=== PATIENT | female | born 1985 | race Caucasian/White ===

== ENCOUNTER 2016-09-28 22:32 | Inpatient (IN) | payer MEDICAID ==
[~2016-09-28] VITALS: Ht 157.5 cm; Wt 98.6 kg
[~2016-09-28 22:32] MED LIST: ACET325T33 PO; LEVO50TA74 PO
[2016-09-28 23:40] VITALS: BP 132/80; PULSE 88; RESP 18
[2016-09-29 00:09] LABS: ADD UMIC YES; URINE BILIRUBIN (Dip) NEGATIVE (NEGATIVE); URINE BLOOD (Dip) NEGATIVE (NEGATIVE); URINE COLOR LT. YELLOW (YELLOW); URINE GLUCOSE (Dip) NEGATIVE (NEGATIVE); URINE KETONES (Dip) TRACE (NEGATIVE); URINE LEUKOCYTE ESTERASE (Dip) 1+ (NEGATIVE); URINE NITRITE (Dip) NEGATIVE (NEGATIVE); URINE TOTAL PROTEIN (Dip) TRACE (NEGATIVE); URINE UROBILINOGEN (Dip) 1.0 E.U./dL (0.1-1.0)
[2016-09-29] MEDS ORDERED: TERBUTALINE 1 ML ONE (00:21)
[2016-09-29] MEDS ORDERED: TERBUTALINE 1 MG/ML INJ SC ONE (00:30)
[2016-09-29] MEDS ORDERED: LACTATED RINGER'S 1,000 ML IV ONE (00:30)
[2016-09-29 00:34] LABS: BACTERIA,URINE MODERATE; SQUAMOUS EPITHELIAL CELL,UR MANY; URINE RBCS NONE SEEN /HPF (0)
[2016-09-29] MEDS ORDERED: LEVO150T67 PO (00:37)
[2016-09-29] MEDS ORDERED: FERR134T PO (00:37)
[2016-09-29] MEDS ORDERED: PRENAT PO (00:37)
[2016-09-29] MEDS: LACTATED RINGER'S 1,000 ML IV SCH ×3 (01:47→18:12)
[2016-09-29 01:50] LABS: ADD SCAN DIFF NO
[2016-09-29 01:52] LABS: BASOPHILS % 0.2 % (0.0-2.0); EOSINOPHILS # 0.1 10^3/ul (0.0-0.5); HEMATOCRIT 32.9 % (37.0-47.0); HEMOGLOBIN 11.4 g/dl (12.0-16.0); LYMPHOCYTES # 2.3 10^3/ul (0.8-2.9); LYMPHOCYTES % 27.6 % (15.0-51.0); MEAN CORPUSCULAR HEMOGLOBIN 29.8 pg (29.0-33.0); MEAN CORPUSCULAR HGB CONC 34.7 g/dl (32.0-37.0); MEAN CORPUSCULAR VOLUME 86.1 fl (82.0-101.0); MEAN PLATELET VOLUME 11.9 fl (7.4-10.4); MONOCYTE # 0.7 10^3/ul (0.3-0.9); MONOCYTES % 8.9 % (0.0-11.0); NEUTROPHILS % 61.7 % (39.0-77.0); PLATELET COUNT 155 10^3/UL (140-415); RED BLOOD COUNT 3.82 10^6/ul (4.20-5.40); RED CELL DISTRIBUTION WIDTH 13.5 % (11.5-14.5); WHITE BLOOD COUNT 8.2 10^3/ul (4.8-10.8)
[2016-09-29] MEDS ORDERED: LACTATED RINGER'S 1,000 ML IV SCH (02:18)
--- NOTE | 2016-09-29 02:22 | HP ---
Date/Time of Note Date/Time of Note DATE: 09/29/16 TIME: 02:20 OB - History Hx of Present Free Text/Dictation 32+wks GA CXL 2.2 : 2 Para: 1 Care: Good Care Ultrasounds: Normal mid trimester US Obstetrical Complications: None Medical Complications: None Past Family/Social History * Past Medical, Surgical, Family and Obstetric Histories reviewed from chart. OB Admission Exam Vital Signs Vital Signs Vital Signs Date Time Temp Pulse Resp B/P Pulse Ox O2 Delivery O2 Flow Rate FiO2 09/28/16 23:40 97.4 88 18 132/80 Room Air Physical Exam Abdomen: WNL Extremities: Normal Cervical Dilatation: None Effacement: 25% Membranes: Intact Heart Rate: 140's Accelerations: Accelerations Present Decelerations: No Decelerations Varibility: Moderate Contractions on Admission: >10 Minutes Apart Last 72 hours Lab Results CBC & BMP 09/29/16 00:45 OB Assessment/Plan Reason for admission: observation, labor Plan: Expectant Management Other plan: CXL 2.2 --->steroids --->Mg --->prenatalogy consult --->JARROD Butler M.D. September 29, 2016 02:22
[2016-09-29] MEDS ORDERED: AL HYDROX/MG HYDROX/SIMETH 30 ML CUP PO PRN (02:30)
[2016-09-29] MEDS ORDERED: ACETAMINOPHEN 325 MG TAB PO PRN (02:30)
[2016-09-29] MEDS ORDERED: CEFAZOLIN 2 GM/50 ML (PMX) 50 ML IVPB ONE (02:30)
[2016-09-29] MEDS ORDERED: MAGNESIUM SULFATE 4 GM/100 ML 100 ML IV ONE (02:30)
--- NOTE | 2016-09-29 02:36 | RADRPT ---
PROCEDURE: OB ultrasound for biophysical profile CLINICAL INDICATION: labor. TECHNIQUE: Multiple sonographic images of the gravid uterus performed. The images were reviewed on a PACS workstation. COMPARISON: None FINDINGS: A single live intrauterine is identified with heart rate of 132 bpm. Fet us is in a cephalic presentation. Placenta is located posteriorly. Biophysical profile: breathing movement = 2/2 tone = 2/2 motion = 2/2 DOLLY = 2/2 DOLLY = 13.86 cm. Cervix is 2.2 cm length. Free fluid is noted at the external cervical os. IMPRESSION: 1. Single live intrauterine gestation. 2. Biophysical profile = 8/8. 3. DOLLY = 13.86 cm. RPTAT: HMVK .Jesus Israel MD, MD Date Time Electronically viewed and signed by .Jesus Israel MD, MD on 09/29/2016 02:35 .K/
--- NOTE | 2016-09-29 02:37 | RADRPT ---
PROCEDURE: US OB. CLINICAL INDICATION: Pain. TECHNIQUE: Multiple sonographic images of the pelvis were obtained. Transabdominal imaging only w as performed. The images were reviewed on a PACS workstation. COMPARISON: None. FINDINGS: Single live intrauterine is identified. Cardiac activity is present with 144 beats per mi nute. There is a vertex presentation. Measurements: BPD = 33 weeks 2 days. HC = 34 weeks 4 days. AC = 33 weeks 0 days. FL = 33 weeks 4 days. Estimated gestational age of approximately 33 weeks 4 days. The estimated date of delivery is 11/13/2016. The EFW = 2176 g which is at the 70th percentile. The placenta is posterior. IMPRESSION: Single live intrauterine gestation of approximately 33 weeks 4 days. RPTAT: HMVK .Jesus Israel MD, Date Time Electronically viewed and signed by .Jesus Israel MD, MD on 09/29/2016 02:37 .K/
[2016-09-29] MEDS ORDERED: MAGNESIUM SULFATE 6 GM in SOD CHLORIDE 0.9% 100 ML IV ONE (03:00)
[2016-09-29] MEDS: MAGNESIUM SULFATE 20 GM/500 ML 500 ML IV SCH ×3 (03:40→21:57)
--- NOTE | 2016-09-29 04:31 | TRIAGE ---
OB Triage Datetime Report Generated by CPN: 09/29/2016 04:31 Datetime: 09/29/2016 03:55 Stage of : Antepartum Datetime: 09/29/2016 01:46 Heart Rate FHR Baseline Rate: 140 Monitor Mode: External US Datetime: 09/29/2016 01:24 Monitor Mode: External Quality: Mild Pattern: Normal: <= 5 Contractions in 10 Minutes Resting Tone [place]: Relaxed Heart Rate FHR Baseline Rate: 140 Monitor Mode: External US FHR Baseline Changes: No Baseline Change Variability: Moderate 6-25 bpm Accelerations: 15X15 Category: Category I Datetime: 09/29/2016 00:27 Monitor Mode: External Quality: Mild Pattern: Normal: <= 5 Contractions in 10 Minutes Resting Tone [place]: Relaxed Heart Rate FHR Baseline Rate: 145 Monitor Mode: External US FHR Baseline Changes: No Baseline Change Variability: Moderate 6-25 bpm Accelerations: 15X15 Decelerations: None Category: Category I Datetime: 09/28/2016 23:55 Stage of : OB Triage Datetime: 09/28/2016 23:50 Stage of : OB Triage Labor Evaluation Frequency: 2-5 Monitor Mode: External Duration (sec)2399: 20-60 Quality: Mild Pattern: Normal: <= 5 Contractions in 10 Minutes Resting Tone [place]: Relaxed Heart Rate FHR Baseline Rate: 140 Monitor Mode: External US FHR Baseline Changes: No Baseline Change Variability: Moderate 6-25 bpm Accelerations: 15X15 Datetime: 09/28/2016 23:25 Stage of : OB Triage Labor Evaluation Frequency: 2-5 Monitor Mode: External Duration (sec)2399: 40-60 Quality: Mild Pattern: Normal: <= 5 Contractions in 10 Minutes Resting Tone [place]: Relaxed Heart Rate FHR Baseline Rate: 140 Monitor Mode: External US FHR Baseline Changes: No Baseline Change Variability: Moderate 6-25 bpm Accelerations: 15X15 Decelerations: None Category: Category I Datetime: 09/28/2016 23:14 EGA: 32.2 Arrived By: Ambulatory Arrived From: Home Vaginal Exam Membrane Status: Intact Datetime: 09/28/2016 22:42 Stage of : OB Triage Maternal Assessment Level of Consciousness: Fully Conscious Headache: Denies Blurred Vision: No Respiratory Effort: Unlabored Nausea/Vomiting: Denies RUQ Epigastric Pain: Denies Facial Edema: None Monitor Mode: External Resting Tone [place]: Relaxed Monitor Mode: External US Comments: FHR 150 Pain Assessment Pain Scale: 3 Pain Presence: Intermittent Pain Type: Contraction Pain Location: Abdomen Datetime: 09/28/2016 22:40 Time of Arrival: 09/28/2016 22:26 Arrived By: Ambulatory Arrived From: Home Chief Complaint: w/ c/o ucs. Hx PTD at 36 wks for PIH Movement: Present (Annotations: Data stored by CPN on behalf of user) Contractions: Regular Time Contractions Began: 09/28/2016 18:00 Contractions: 2-4 Rupture of Membranes: Denies Vaginal Bleeding: None Vaginal Discharge: Denies Recent Sexual Intercouse: Denies Abdominal Trauma: Not Applicable Patient Complaints: Contractions Time Provider Notified: 09/28/2016 23:55 Provider Notified: Dr Irene Initial Plan: CVL,EFW,UA,CBC,IV hydration, Terb
[2016-09-29] MEDS: BETAMET NA PHOS/AC(6 MG/ML) 5ML INJ IM SCH (04:35)
[2016-09-29] MEDS: LEVOTHYROXINE 150 MCG TAB PO SCH (05:36)
[2016-09-29] MEDS ORDERED: LEVOTHYROXINE 150 MCG TAB PO SCH (07:00)
[2016-09-29] MEDS ORDERED: MULTIVIT/MIN/FOLATE/IRON/PREN TAB PO SCH (09:00)
[2016-09-29] MEDS ORDERED: FERROUS SULFATE (EC) 325 MG TAB PO SCH (09:00)
[2016-09-29] MEDS: SENNA TAB PO SCH (09:09)
[2016-09-29] MEDS: FERROUS SULFATE (EC) 325 MG TAB PO SCH (09:09)
[2016-09-29] MEDS: MULTIVIT/MIN/FOLATE/IRON/PREN TAB PO SCH (09:09)
[2016-09-29] MEDS: DOCUSATE SODIUM 100 MG CAP PO SCH (09:09)
[2016-09-29] MEDS: NITROFURANTOIN (SR) 100 MG CAP PO SCH ×2 (11:45→20:45)
--- NOTE | 2016-09-29 12:38 | PN ---
Date/Time of Note Date/Time of Note DATE: 09/29/16 TIME: 12:32 OB Subjective Subjective Subjective Patient is 2 para 1 at 32+ weeks of gestation admitted for labor She is currently on magnesium sulfate 2 g/h Status post 1 dose of betamethasone Patient hx significant for hypothyroidism and currently on Synthroid Patient past obstetrical history significant for preeclampsia OB Objective Objective Objective Cervical length 2.2 cm PROCEDURE: US OB. CLINICAL INDICATION: Pain. TECHNIQUE: Multiple sonographic images of the pelvis were obtained. Transabdominal imaging only was performed. The images were reviewed on a PACS workstation. COMPARISON: None. FINDINGS: Single live intrauterine is identified. Cardiac activity is present with 144 beats per minute. There is a vertex presentation. Measurements: BPD = 33 weeks 2 days. HC = 34 weeks 4 days. AC = 33 weeks 0 days. FL = 33 weeks 4 days. Estimated gestational age of approximately 33 weeks 4 days. The estimated date of delivery is 11/13/2016. The EFW = 2176 g which is at the 70th percentile. The placenta is posterior. IMPRESSION: Single live intrauterine gestation of approximately 33 weeks 4 days. RPTAT: HMVK .Jesus Israel MD, MD Date Time Electronically viewed and signed by .Jesus Israel MD, MD on 09/29/2016 02:37 .K/ CC: JARROD ROSALES M.D. PROCEDURE: OB ultrasound for biophysical profile CLINICAL INDICATION: labor. TECHNIQUE: Multiple sonographic images of the gravid uterus performed. The images were reviewed on a PACS workstation. COMPARISON: None FINDINGS: A single live intrauterine is identified with heart rate of 132 bpm. Fetus is in a cephalic presentation. Placenta is located posteriorly. Biophysical profile: breathing movement = 2/2 tone = 2/2 motion = 2/2 DOLLY = 2/2 DOLLY = 13.86 cm. Cervix is 2.2 cm length. Free fluid is noted at the external cervical os. IMPRESSION: 1. Single live intrauterine gestation. 2. Biophysical profile = 8/8. 3. DOLLY = 13.86 cm. RPTAT: HMVK .Jesus Israel MD, Date Time Electronically viewed and signed by .Jesus Israel MD, on 09/29/2016 02:35 .K/ CC: JARROD ROSALES M.D. HEENT: WNL Heart: Rhythm Normal Lungs: Clear, Equal Abdomen: WNL Extremities: Normal Reflexes: Normal Heart Rate: 140's Accelerations: Accelerations Present Decelerations: No Decelerations OB Assessment/Plan Other Assessment: 2 para 1 at 32+3 weeks of gestation with labor Other plan: Continue with Magso4 Second dose of betamethasone to be given Macrobid for UTI ordered Perinatology consult pending LARA FENG MD September 29, 2016 12:38
[2016-09-30] MEDS: LACTATED RINGER'S 1,000 ML IV SCH ×2 (02:58→09:05)
[2016-09-30] MEDS: BETAMET NA PHOS/AC(6 MG/ML) 5ML INJ IM SCH (04:30)
[2016-09-30] MEDS: LEVOTHYROXINE 150 MCG TAB PO SCH (05:51)
[2016-09-30] MEDS: MAGNESIUM SULFATE 20 GM/500 ML 500 ML IV SCH (07:04)
[2016-09-30] MEDS: DOCUSATE SODIUM 100 MG CAP PO SCH (09:04)
[2016-09-30] MEDS: SENNA TAB PO SCH (09:04)
[2016-09-30] MEDS: NITROFURANTOIN (SR) 100 MG CAP PO SCH (09:04)
[2016-09-30] MEDS: FERROUS SULFATE (EC) 325 MG TAB PO SCH (09:04)
[2016-09-30] MEDS: MULTIVIT/MIN/FOLATE/IRON/PREN TAB PO SCH (09:04)
--- NOTE | 2016-09-30 16:20 | QN ---
Documentation Comment iup 32.4 no complaints no ucx good FM vss exam wnl nst reactive a/p iup 32.3 ptl-s/p bms and mgsout dc mgso4 dc iv abx(no uti) repeat Cl in am possible dc home in am SHABNAM THORPE MD September 30, 2016 16:20
[2016-09-30] MEDS ORDERED: NIFEdipine 10 MG CAP PO ONE (17:30)
[2016-10-01] MEDS: LEVOTHYROXINE 150 MCG TAB PO SCH (06:01)
--- NOTE | 2016-10-01 07:40 | RADRPT ---
PROCEDURE: Limited obstetric ultrasound CLINICAL INDICATION: Pain , labor TECHNIQUE: Multiple transverse and longitudinal grayscale images of the pelvis were obtained magallanes sabdominally and transvaginally.. COMPARISON: 09/29/2016 FINDINGS: The cervix is closed with a length of 2.1 cm. There is a single viable intrauterine gestation. Cardiac activity is present with 144 beats per min [place]. There is a vertex presentation. The placenta is posterior. There is no evidence for an abruption or placenta previa. RPTAT: AA IMPRESSION: Cervix length measures 2.1 cm. .Delmer Carmona MD, MD Date Time Electronically viewed and signed by .Delmer Carmona MD, on 10/01/2016 07:40 .S/
[2016-10-01] MEDS: FERROUS SULFATE (EC) 325 MG TAB PO SCH (08:58)
[2016-10-01] MEDS: DOCUSATE SODIUM 100 MG CAP PO SCH (08:58)
[2016-10-01] MEDS: SENNA TAB PO SCH (08:58)
[2016-10-01] MEDS: MULTIVIT/MIN/FOLATE/IRON/PREN TAB PO SCH (08:58)
[2016-10-01] MEDS: NIFEdipine 10 MG CAP PO SCH ×3 (08:59→17:55)
[2016-10-01 09:58] LABS: ADD SCAN DIFF NO
[2016-10-01 10:03] LABS: BASOPHILS % 0.2 % (0.0-2.0); EOSINOPHILS % 0.1 % (0.0-7.0); HEMATOCRIT 32.3 % (37.0-47.0); HEMOGLOBIN 10.8 g/dl (12.0-16.0); LYMPHOCYTES # 1.6 10^3/ul (0.8-2.9); LYMPHOCYTES % 15.1 % (15.0-51.0); MEAN CORPUSCULAR HEMOGLOBIN 29.2 pg (29.0-33.0); MEAN CORPUSCULAR HGB CONC 33.4 g/dl (32.0-37.0); MEAN CORPUSCULAR VOLUME 87.3 fl (82.0-101.0); MEAN PLATELET VOLUME 11.4 fl (7.4-10.4); MONOCYTE # 0.6 10^3/ul (0.3-0.9); MONOCYTES % 5.5 % (0.0-11.0); NEUTROPHIL # 8.2 10^3/ul (1.6-7.5); NEUTROPHILS % 77.6 % (39.0-77.0); PLATELET COUNT 172 10^3/UL (140-415); RED CELL DISTRIBUTION WIDTH 13.8 % (11.5-14.5); WHITE BLOOD COUNT 10.6 10^3/ul (4.8-10.8)
[2016-10-01] MEDS: CEPHALEXIN 500 MG CAP PO SCH ×2 (12:00→17:55)
--- NOTE | 2016-10-01 16:53 | CONS ---
DATE OF ADMISSION: 09/29/2016 DATE OF CONSULTATION: 10/01/2016 HISTORY OF PRESENT ILLNESS: The patient was admitted over the weekend because of contractions. Tra nsvaginal cervical length was done which showed 2 cm of the cervix. She is currently at 32 weeks an d 5 days. She received magnesium and betamethasone. Second dose of betamethasone was yesterday at 3 p.m. Magnesium sulfate was discontinued this morning. After that she started having some contracti ons, and she was placed subsequently on Procardia 10 mg every 6 hours. She does state that after Procardia she does not feel contractions. OBSTETRIC HISTORY: Significant for prior preeclampsia at 36 weeks, subsequent delivery and also she has hypothyroid disease. MEDICATIONS: I am not aware if she is taking medications. PHYSICAL EXAMINATION: VITAL SIGNS: Blood pressures normal. Physical examination deferred. heart tones reassuring. Contractions irregular irritability. IMPRESSION: Intrauterine at 32 weeks and 5 days with labor, status post magnesium sulfate and betamethasone, currently on Procardia 10 mg every 6 hours with no contractions. History of preeclampsia, currently her blood pressures are overall normal. RECOMMENDATIONS: Continue with the Procardia until tomorrow morning, and if she is stable, she can be discharged home with modified bed rest, at least until 34 weeks. Continue with the Procardia until 36 weeks of gestation. Please review the thyroid hormones and if necessary refer for consultation. Monitor blood pressures closely. Dictated By: NATHAN AGUILAR/DAX Conf#: [id number] DID#: [id number]
[2016-10-02] MEDS: NIFEdipine 10 MG CAP PO SCH ×5 (00:14→23:53)
[2016-10-02] MEDS: CEPHALEXIN 500 MG CAP PO SCH ×5 (00:15→23:52)
[2016-10-02] MEDS: LEVOTHYROXINE 150 MCG TAB PO SCH (06:01)
[2016-10-02] MEDS: DOCUSATE SODIUM 100 MG CAP PO SCH (09:41)
[2016-10-02] MEDS: MULTIVIT/MIN/FOLATE/IRON/PREN TAB PO SCH (09:42)
[2016-10-02] MEDS: SENNA TAB PO SCH (09:42)
[2016-10-02] MEDS: FERROUS SULFATE (EC) 325 MG TAB PO SCH (09:42)
--- NOTE | 2016-10-02 13:48 | PN ---
Date/Time of Note Date/Time of Note DATE: 10/02/16 TIME: 13:41 Assessment/Plan VTE Prophylaxis VTE Prophylaxis Intervention: anti-embolic stocking Lines/Catheters IV Catheter Type (from Nrsg): Peripheral IV Subjective 24 Hr Interval Summary Free Text/Dictation 32,6 WEEKS LABOR SHORT CERVIX Constitutional: improved, no complaints Eyes: no complaints ENT: no complaints Cardiovascular: no complaints Musculoskeletal: no complaints Skin: no complaints Neurologic: no complaints Psychological: nl mood/affect, no complaints Exam/Review of Systems Vital Signs Vitals Vital Signs Date Time Temp Pulse Resp B/P Pulse Ox O2 Delivery O2 Flow Rate FiO2 09/28/16 23:40 97.4 88 18 132/80 Room Air Exam PATIENT IS UNDELIVERED AT 32,6 WEEKS HAS BEEN EDWIN 3-5 MINUTES APART. ON PROCARDIA HAD LABOR TREATED WITH MAG SULFATE AND PROCARDIA HAD STEROID AND ANTIBIOTIC TREATMENT CULTURE NEGATIVE IN URINE. ON PO KEFLEX DUE TO BLADDER PAIN ON PELVIC EXAM. PROCARDIA WILL BE INCREASED FOR BETTER TOCOLYSIS ON STRICT BED REST. US SHOWED CLOSED CERVIX BUT SHORT. Constitutional: alert, oriented, well developed Psych: nl mood/affect, no complaints Head: atraumatic, normocephalic Eyes: EOMI, PERRL, nl conjunctiva, nl lids, nl sclera ENMT: nl external ears & nose, nl lips & teeth, nl nasal mucosa & septum Neck: non-tender, supple Respiratory: clear to auscultation, normal air movement Cardiovascular: nl pulses, regular rate and rhythm Gastrointestinal: nl liver, spleen, non-tender, soft Musculoskeletal: nl extremities to inspection, nl gait and stance Extremities: normal pulses Neurological: CARGO ROUTER II-XII intact, nl mental status, nl speech, nl strength Skin: nl turgor, No rash or lesions Lymph: nl lymph nodes Results Result Diagram: 10/01/16 0900 Medications Medications Current Medications Prenat Multivit/ [place]/Iron/Folic Ac ( S) 1 tab DAILY PO Last administered on 10/02/16 09:42; Admin Dose 1 TAB; Start 09/29/16 at 09:00 Ferrous Sulfate (Ferrous Sulfate (Ec)) 325 mg DAILY PO Last administered on 09:42; Admin Dose 325 MG; Start 09/29/16 at 09:00 Docusate Sodium (Colace) 100 mg DAILY PO Last administered on 10/02/16 09:41; Admin Dose 100 MG; Start 09/29/16 at 09:00 Senna (Senokot) 1 tab DAILY PO Last administered on 10/02/16 09:42; Admin Dose 1 TAB; Start 09/29/16 at 09:00 Acetaminophen (Tylenol Tab) 650 mg Q4H PRN PO PAIN AND OR ELEVATED TEMP; Start 09/29/16 at 02:30 Al Hydrox/Mg Hydrox/Simethicone (Mag-Al Plus) 30 ml Q6H PRN PO GASTROINTESTINAL UPSET; Start 09/29/16 at 02:30 Levothyroxine Sodium (Synthroid) 150 mcg DAILY@06 PO Last administered on 06:01; Admin Dose 150 MCG; Start 09/29/16 at 06:00 Cephalexin (Keflex) 500 mg Q6 PO Last administered on 10/02/16 12:21; Admin Dose 500 MG; Start 10/01/16 at 12:00 Nifedipine (Procardia) 20 mg Q6 PO Last administered on 10/02/16 12:23; Admin Dose 20 MG; Start 10/02/16 at 12:30 Diagnostic Test (Pha) (Accu-Chek) 1 ea FBSPP XX ; Start 10/02/16 at 14:00 MELANIE CARRILLO MD October 02, 2016 13:48
--- NOTE | 2016-10-02 13:51 | PN ---
Date/Time of Note Date/Time of Note DATE: 10/01/16 TIME: 13:48 OB Subjective Subjective Subjective LABOR ADMITTED DURING THE WEEKEND FOR UTERINE CONTRACTIONS AND SHORT CERVIX. TREATMENT WAS GIVEN WITH MAG SULFATE, STEROIDS AND ANTIBIOTICS. PERINATOLOGY CONSULTED MELANIE CARRILLO MD October 02, 2016 13:51
[2016-10-02 14:41] VITALS: Ht 157.5 cm; Wt 98.6 kg
[2016-10-02] MEDS: ACCU-CHEK XX SCH (19:44)
[2016-10-03] MEDS: CEPHALEXIN 500 MG CAP PO SCH ×3 (05:47→18:06)
[2016-10-03] MEDS: NIFEdipine 10 MG CAP PO SCH ×3 (05:47→18:07)
[2016-10-03] MEDS: LEVOTHYROXINE 150 MCG TAB PO SCH (05:47)
[2016-10-03] MEDS: ACCU-CHEK XX SCH ×4 (08:30→20:05)
[2016-10-03] MEDS: FERROUS SULFATE (EC) 325 MG TAB PO SCH (09:07)
[2016-10-03] MEDS: SENNA TAB PO SCH (09:07)
[2016-10-03] MEDS: DOCUSATE SODIUM 100 MG CAP PO SCH (09:07)
[2016-10-03] MEDS: MULTIVIT/MIN/FOLATE/IRON/PREN TAB PO SCH (09:07)
--- NOTE | 2016-10-03 12:24 | PN ---
Date/Time of Note Date/Time of Note DATE: 10/03/16 TIME: 12:22 OB Subjective Subjective Subjective doing good, not maureen. blood sugar normal today is 33.1 weeks we will keep her in bed rest until 34 weeks and send home then OB Objective HEENT: WNL Heart: Rhythm Normal Lungs: Clear, Equal Abdomen: WNL Extremities: Normal Reflexes: Normal MELANIE CARRILLO MD October 03, 2016 12:24
--- NOTE | 2016-10-03 13:28 | RADRPT ---
PROCEDURE: OB ultrasound for biophysical profile CLINICAL INDICATION: Biophysical profile. . labor TECHNIQUE: Multiple sonographic images of the pelvis were obtained. Transabdominal and transvagin al views are obtained. COMPARISON: OB ultrasound 10/01/2016 FINDINGS: Single intrauterine gestation. Presentation: Cephalic. Placenta: Posterior No evidence of placental abruption. No evidence of placenta previa. breathing movement = 2/2 tone = 2/2 motion = 2/2 DOLLY = 2/2 DOLLY = 14.9 cm heart rate: 168.4 beats per minute Cervix is now shortened measuring 12 mm in length and is partially opened measuring 1.3 mm in diamet er as visualized transvaginally. IMPRESSION: Single intrauterine gestation. Biophysical profile 12/18 Cervix is mal shortened measuring 12 mm in length and is partially opened measuring 1.3 mm in diamet er as visualized transvaginally. Results were discussed with Nurse Littlejohn by telephone at 1325 hours on 10/03/[address] Dante beverly RPTAT: AADD .Dante Márquez MD, Date Time Electronically viewed and signed by .Dante Márquez MD, on 10/03/2016 13:28 .B/
[2016-10-04] MEDS: NIFEdipine 10 MG CAP PO SCH ×4 (00:03→19:58)
[2016-10-04] MEDS: CEPHALEXIN 500 MG CAP PO SCH ×4 (00:03→19:57)
[2016-10-04] MEDS: LEVOTHYROXINE 150 MCG TAB PO SCH (06:00)
[2016-10-04] MEDS: ACCU-CHEK XX SCH ×4 (07:30→19:59)
[2016-10-04] MEDS: FERROUS SULFATE (EC) 325 MG TAB PO SCH (08:59)
[2016-10-04] MEDS: SENNA TAB PO SCH (08:59)
[2016-10-04] MEDS: DOCUSATE SODIUM 100 MG CAP PO SCH (08:59)
[2016-10-04] MEDS: MULTIVIT/MIN/FOLATE/IRON/PREN TAB PO SCH (08:59)
--- NOTE | 2016-10-04 10:56 | PN ---
Date/Time of Note Date/Time of Note DATE: 10/04/16 TIME: 10:53 OB Subjective Subjective Subjective feels good with some contractions that go away with procardia. not maureen right now no pain no other symptoms stable cervical length is only 1 cm 33.1 weeks today goal is to keep her in bed rest until 34 weeks. MELANIE CRARILLO MD October 04, 2016 10:56
[2016-10-05] MEDS: CEPHALEXIN 500 MG CAP PO SCH ×4 (00:06→17:47)
[2016-10-05] MEDS: NIFEdipine 10 MG CAP PO SCH ×4 (00:07→17:47)
[2016-10-05] MEDS: LEVOTHYROXINE 150 MCG TAB PO SCH (06:08)
[2016-10-05] MEDS: ACCU-CHEK XX SCH (07:26)
[2016-10-05] MEDS: DOCUSATE SODIUM 100 MG CAP PO SCH (08:48)
[2016-10-05] MEDS: SENNA TAB PO SCH (08:48)
[2016-10-05] MEDS: FERROUS SULFATE (EC) 325 MG TAB PO SCH (08:48)
[2016-10-05] MEDS: MULTIVIT/MIN/FOLATE/IRON/PREN TAB PO SCH (08:48)
--- NOTE | 2016-10-05 10:26 | PN ---
Date/Time of Note Date/Time of Note DATE: 10/05/16 TIME: 10:24 OB Subjective Subjective Subjective DOING WELL., NO PROBLEMS OR COMPLAINTS NO CONTRACTIONS NOW HAD CONTRACTIONS LAST NITE CONTROLLED WITH PROCARDIA BLOOD SUGAR STABLE. HOME AT 34 WEEKS DUE TO CERVICAL LENGTH OB Objective HEENT: WNL Heart: Rhythm Normal Lungs: Clear, Equal Abdomen: WNL Extremities: Normal Reflexes: Normal MELANIE CARRILLO MD October 05, 2016 10:26
[2016-10-06] MEDS: NIFEdipine 10 MG CAP PO SCH ×5 (00:10→23:55)
[2016-10-06] MEDS: CEPHALEXIN 500 MG CAP PO SCH ×5 (00:10→23:54)
[2016-10-06] MEDS: LEVOTHYROXINE 150 MCG TAB PO SCH (05:59)
[2016-10-06] MEDS ORDERED: TERBUTALINE 1 ML ONE (08:27)
[2016-10-06] MEDS ORDERED: TERBUTALINE 1 MG/ML INJ SC ONE (08:30)
[2016-10-06] MEDS: FERROUS SULFATE (EC) 325 MG TAB PO SCH (09:08)
[2016-10-06] MEDS: DOCUSATE SODIUM 100 MG CAP PO SCH (09:08)
[2016-10-06] MEDS: SENNA TAB PO SCH (09:08)
[2016-10-06] MEDS: MULTIVIT/MIN/FOLATE/IRON/PREN TAB PO SCH (09:08)
[2016-10-06] MEDS: metroNIDAZOLE 0.75% 70 GM VAG GEL VAG SCH ×2 (10:28→20:59)
--- NOTE | 2016-10-06 23:58 | QN ---
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 Pt was on magnesium initially and is now on Procardia 10 mg q 6 hours. Pt reports occasional UC's. No VB or leaking. NST reactive. Occasional UC's noted. Pt is in good spirits. P: Continue care. In hospital until 34 weeks and then will go home on Procardia until 36-37 weeks. JOSEE JENNINGS MD October 06, 2016 23:58
[2016-10-07] MEDS: NIFEdipine 10 MG CAP PO SCH ×3 (06:06→17:41)
[2016-10-07] MEDS: LEVOTHYROXINE 150 MCG TAB PO SCH (06:06)
[2016-10-07] MEDS: CEPHALEXIN 500 MG CAP PO SCH ×3 (06:06→17:40)
[2016-10-07] MEDS: SENNA TAB PO SCH (08:58)
[2016-10-07] MEDS: DOCUSATE SODIUM 100 MG CAP PO SCH (08:58)
[2016-10-07] MEDS: MULTIVIT/MIN/FOLATE/IRON/PREN TAB PO SCH (08:58)
[2016-10-07] MEDS: FERROUS SULFATE (EC) 325 MG TAB PO SCH (08:58)
[2016-10-07] MEDS: metroNIDAZOLE 0.75% 70 GM VAG GEL VAG SCH (21:15)
[2016-10-08] MEDS: CEPHALEXIN 500 MG CAP PO SCH ×5 (00:01→23:59)
[2016-10-08] MEDS: NIFEdipine 10 MG CAP PO SCH ×5 (00:03→23:59)
[2016-10-08] MEDS: LEVOTHYROXINE 150 MCG TAB PO SCH (05:36)
[2016-10-08] MEDS: DOCUSATE SODIUM 100 MG CAP PO SCH (08:46)
[2016-10-08] MEDS: FERROUS SULFATE (EC) 325 MG TAB PO SCH (08:46)
[2016-10-08] MEDS: SENNA TAB PO SCH (08:47)
[2016-10-08] MEDS: MULTIVIT/MIN/FOLATE/IRON/PREN TAB PO SCH (08:47)
--- NOTE | 2016-10-08 12:33 | PN ---
Date/Time of Note Date/Time of Note DATE: 10/08/16 TIME: 12:31 Assessment/Plan VTE Prophylaxis VTE Prophylaxis Intervention: anti-embolic stocking Lines/Catheters IV Catheter Type (from Nrsg): Peripheral IV Subjective 24 Hr Interval Summary Free Text/Dictation doing well not maureen no changes continue same plan Constitutional: improved, no complaints Exam/Review of Systems Exam Constitutional: alert, oriented, well developed Psych: nl mood/affect, no complaints Head: atraumatic, normocephalic Eyes: EOMI, PERRL, nl conjunctiva, nl lids, nl sclera ENMT: nl external ears & nose, nl lips & teeth, nl nasal mucosa & septum Neck: non-tender, supple Respiratory: clear to auscultation, normal air movement Cardiovascular: nl pulses, regular rate and rhythm Gastrointestinal: nl liver, spleen, non-tender, soft Musculoskeletal: nl extremities to inspection, nl gait and stance Extremities: normal pulses Neurological: TOLL COLLECTOR SUPERVISOR II-XII intact, nl mental status, nl speech, nl strength Skin: nl turgor, No rash or lesions Lymph: nl lymph nodes Medications Medications Current Medications Prenat Multivit/ [place]/Iron/Folic Ac ( S) 1 tab DAILY PO Last administered on 10/08/16 08:47; Admin Dose 1 TAB; Start 09/29/16 at 09:00 Ferrous Sulfate (Ferrous Sulfate (Ec)) 325 mg DAILY PO Last administered on 08:46; Admin Dose 325 MG; Start 09/29/16 at 09:00 Docusate Sodium (Colace) 100 mg DAILY PO Last administered on 10/08/16 08:46; Admin Dose 100 MG; Start 09/29/16 at 09:00 Senna (Senokot) 1 tab DAILY PO Last administered on 10/08/16 08:47; Admin Dose 1 TAB; Start 09/29/16 at 09:00 Acetaminophen (Tylenol Tab) 650 mg Q4H PRN PO PAIN AND OR ELEVATED TEMP; Start 09/29/16 at 02:30 Al Hydrox/Mg Hydrox/Simethicone (Mag-Al Plus) 30 ml Q6H PRN PO GASTROINTESTINAL UPSET; Start 09/29/16 at 02:30 Levothyroxine Sodium (Synthroid) 150 mcg DAILY@06 PO Last administered on 05:36; Admin Dose 150 MCG; Start 09/29/16 at 06:00 Cephalexin (Keflex) 500 mg Q6 PO Last administered on 10/08/16 11:47; Admin Dose 500 MG; Start 10/01/16 at 12:00 Nifedipine (Procardia) 20 mg Q6 PO Last administered on 10/08/16 11:47; Admin Dose 20 MG; Start 10/02/16 at 12:30 Metronidazole (Metrogel 0.75 % Vag) 1 applic HS VAG Last administered on 21:15; Admin Dose 1 APPLIC; Start 10/06/16 at 09:00 MELANIE CARRILLO MD October 08, 2016 12:33
--- NOTE | 2016-10-08 12:34 | PN ---
Date/Time of Note Date/Time of Note DATE: 10/07/16 TIME: 12:33 OB Subjective Subjective Subjective no changes no contractions stable MELANIE CARRILLO MD October 08, 2016 12:34
[2016-10-08] MEDS: metroNIDAZOLE 0.75% 70 GM VAG GEL VAG SCH (21:01)
[2016-10-09] MEDS: CEPHALEXIN 500 MG CAP PO SCH ×3 (05:57→17:52)
[2016-10-09] MEDS: LEVOTHYROXINE 150 MCG TAB PO SCH (05:57)
[2016-10-09] MEDS: NIFEdipine 10 MG CAP PO SCH ×3 (05:59→17:53)
[2016-10-09] MEDS: DOCUSATE SODIUM 100 MG CAP PO SCH (09:04)
[2016-10-09] MEDS: FERROUS SULFATE (EC) 325 MG TAB PO SCH (09:05)
[2016-10-09] MEDS: SENNA TAB PO SCH (09:05)
[2016-10-09] MEDS: MULTIVIT/MIN/FOLATE/IRON/PREN TAB PO SCH (09:05)
--- NOTE | 2016-10-09 11:05 | PN ---
Date/Time of Note Date/Time of Note DATE: 10/09/16 TIME: 11:03 Assessment/Plan VTE Prophylaxis VTE Prophylaxis Intervention: ambulation Lines/Catheters IV Catheter Type (from Nrsg): Peripheral IV Subjective 24 Hr Interval Summary Free Text/Dictation NOT EDWIN STABLE 33.6 WEEKS TODAY WE ANTICIPATE HOME IN AM PELVIC EXAM WITHOUT CHANGES Exam/Review of Systems Exam Constitutional: alert, oriented, well developed Psych: nl mood/affect, no complaints Head: atraumatic, normocephalic Eyes: EOMI, PERRL, nl conjunctiva, nl lids, nl sclera ENMT: nl external ears & nose, nl lips & teeth, nl nasal mucosa & septum Neck: non-tender, supple Respiratory: clear to auscultation, normal air movement Cardiovascular: nl pulses, regular rate and rhythm Gastrointestinal: nl liver, spleen, non-tender, soft Musculoskeletal: nl extremities to inspection, nl gait and stance Extremities: normal pulses Neurological: PHOTOGRAPH TINTER II-XII intact, nl mental status, nl speech, nl strength Skin: nl turgor, No rash or lesions Lymph: nl lymph nodes Medications Medications Current Medications Prenat Multivit/ [place]/Iron/Folic Ac ( S) 1 tab DAILY PO Last administered on 10/09/16 09:05; Admin Dose 1 TAB; Start 09/29/16 at 09:00 Ferrous Sulfate (Ferrous Sulfate (Ec)) 325 mg DAILY PO Last administered on 09:05; Admin Dose 325 MG; Start 09/29/16 at 09:00 Docusate Sodium (Colace) 100 mg DAILY PO Last administered on 10/09/16 09:04; Admin Dose 100 MG; Start 09/29/16 at 09:00 Senna (Senokot) 1 tab DAILY PO Last administered on 10/09/16 09:05; Admin Dose 1 TAB; Start 09/29/16 at 09:00 Acetaminophen (Tylenol Tab) 650 mg Q4H PRN PO PAIN AND OR ELEVATED TEMP; Start 09/29/16 at 02:30 Al Hydrox/Mg Hydrox/Simethicone (Mag-Al Plus) 30 ml Q6H PRN PO GASTROINTESTINAL UPSET; Start 09/29/16 at 02:30 Levothyroxine Sodium (Synthroid) 150 mcg DAILY@06 PO Last administered on 05:57; Admin Dose 150 MCG; Start 09/29/16 at 06:00 Cephalexin (Keflex) 500 mg Q6 PO Last administered on 10/09/16 05:57; Admin Dose 500 MG; Start 10/01/16 at 12:00 Nifedipine (Procardia) 20 mg Q6 PO Last administered on 10/09/16 05:59; Admin Dose 20 MG; Start 10/02/16 at 12:30 Metronidazole (Metrogel 0.75 % Vag) 1 applic HS VAG Last administered on 21:01; Admin Dose 1 APPLIC; Start 10/06/16 at 09:00 MELANIE CARRILLO MD October 09, 2016 11:05
[2016-10-09] MEDS: metroNIDAZOLE 0.75% 70 GM VAG GEL VAG SCH (20:54)
[2016-10-10] MEDS: CEPHALEXIN 500 MG CAP PO SCH ×4 (00:10→12:20)
[2016-10-10] MEDS: NIFEdipine 10 MG CAP PO SCH ×3 (00:13→12:16)
[2016-10-10] MEDS: LEVOTHYROXINE 150 MCG TAB PO SCH (06:07)
[2016-10-10] MEDS: MULTIVIT/MIN/FOLATE/IRON/PREN TAB PO SCH (10:26)
[2016-10-10] MEDS: SENNA TAB PO SCH (10:26)
[2016-10-10] MEDS: DOCUSATE SODIUM 100 MG CAP PO SCH (10:26)
[2016-10-10] MEDS: FERROUS SULFATE (EC) 325 MG TAB PO SCH (10:26)
--- NOTE | 2016-10-10 11:15 | PD.PPDC ---
COMPOSITION INSTRUCTOR Discharge Instruction Condition Patient Condition: Good Diet Diet: Resume Regular Diet Activity/Restrictions Activity: Normal Activity May Shower Restrictions: No Exercising No Lifting No Driving No Sexual Activity Nothing in the Vagina No [place]ren No Tampons, MELANIE Cosby MD October 10, 2016 11:15
--- NOTE | 2016-10-10 13:04 | DS ---
DATE OF ADMISSION: 09/29/2016 DATE OF DISCHARGE: 10/10/2016 ADMITTING DIAGNOSES: 1. A 32 weeks' with premature labor and short cervix. 2. Previous premature labor. 3. Hypothyroid disease, on medication. FINAL DIAGNOSES: 1. Premature labor at 34 weeks with cervical changes. 2. Hypothyroidism. 3. Home, undelivered. HISTORY: This is a 31-year-old female, 2, para 1 with a previous delivery at 36 weeks. Thi s patient had come in at 32 weeks with contractions and short cervix with funneling of the cervix. The patient was admitted by the laborist and she was given magnesium sulfate, betamethasone and anti biotics. Consultation was done with Dr. Mason and she agreed on keep her on bed rest in the [facility] until all the medications properly for premature labor were given. The patient received, the magn esium sulfate was discontinued and she started contraction again, so Procardia was added by mouth an d antibiotics as Keflex. She stopped maureen and she is controlled on Procardia. We kept her a t bed rest. The cervical length is just 1 cm. We kept her at bed rest in the hospital until 34 wee ks had been reached. Today is 34 weeks, she is being sent home with instructions of what to do and not to do, and with instructions of seeing me in the office in a week on Procardia 20 mg 3 times a d ay, and partial bed rest at home with 6 hours of bed rest during the day without going out to the [facility]. This patient is to see me in the office in a week. She was instructed on labor precautions. She is stable in good condition to go home. Her laboratory testing did not show any problems. She is slightly anemic for which she was given prenatals and iron, and treatment for was given. The clean catch urine results were negative. The patient is stable otherwise to go home and further instructions were given. She is discharged in good condition and with all her questions answered. Dictated By: MELANIE SERRANO/DAX Conf#: [id number] DID#: [id number]
== END 2016-10-10 13:10 | disposition home or self-care (01) | DRG 778 ==
LOC: OBT 22:32 → L-D 22:32 → OBT 09-29 02:28 → OBG 09-29 03:55
PROVIDERS: ADMIT Obstetrics & Gynecology; ATTEND Obstetrics & Gynecology
DX: O60.00 Preterm labor without delivery, unspecified trimester (principal); O26.879 Cervical shortening, unspecified trimester; O09.213 Supervision of pregnancy with history of pre-term labor, third trimester; O09.293 Supervision of pregnancy with other poor reproductive or obstetric history, third trimester; Z3A.32 32 weeks gestation of pregnancy; O99.283 Endocrine, nutritional and metabolic diseases complicating pregnancy, third trimester; E03.9 Hypothyroidism, unspecified
CPT/HCPCS: 36415; 76815; 76817; 76818; 81001; 81003; 82962; 83735; 84439; 84443; 85025; 86850; 86900; 86901; 87086; 96360; 96361; 96372; G0463; J0702; J3105; J3475; J7120

== ENCOUNTER 2016-10-25 01:38 | Outpatient (CLI) | payer MEDICAID, OTHER ==
[~2016-10-25] VITALS: Ht 160 cm; Wt 105.6 kg
[~2016-10-25 01:38] MED LIST changes: -ACET325T33 PO; +FERR134T PO; +LEVO150T67 PO; -LEVO50TA74 PO; +PRENAT PO
[2016-10-25 02:29] VITALS: Ht 160 cm; Wt 105.6 kg
[2016-10-25 02:30] VITALS: BP 109/65; PULSE 86; RESP 16
[2016-10-25] MEDS ORDERED: TERBUTALINE 1 ML ONE (02:43)
[2016-10-25] MEDS ORDERED: TERBUTALINE 1 MG/ML INJ SC ONE (03:30)
[2016-10-25] MEDS ORDERED: LACTATED RINGER'S 1,000 ML IV ONE (03:30)
[2016-10-25] MEDS ORDERED: LACTATED RINGER'S 1,000 ML IV SCH (03:30)
--- NOTE | 2016-10-25 05:15 | PN ---
Triage Information Date/Time October 25, 2016 Weeks of Gestation 36 weeks and 1 day : 2 Para: 1 Diabetes: none Hypertention: none Additional information 31-year-old with IUP at 36 weeks and 1 presented with complaint of pelvic pressure and uterine contractions. She had a history of delivery in this when she was admitted for steroid and was placed on Procardia. As Procardia was 2 weeks ago. She also has a history of hypothyroidism currently on Synthroid. She denies any leaking of fluid, vaginal bleeding or decreased movement. She was examined and was 2-/-2 patient received a dose of terbutaline with IV hydration. Objective Vital Signs Date Time Temp Pulse Resp B/P Pulse Ox O2 Delivery O2 Flow Rate FiO2 10/25/16 02:30 98.4 86 16 109/65 Room Air Exam General appearance: Alert and oriented 4 patient does not appear to be in any acute distress. Abdomen: Soft, gravid, fundal height consistent with gestational age, nontender , no rebound tenderness NST: Category 1 exam in the office 2 cm Exam in triage 2-/-2 Results/Medications Medications Current Medications Lactated Ringer's (Lr) 1,000 ml @ 125 mls/hr Q8H IV Last administered on t 03:20; Admin Dose 125 MLS/HR; Start 10/25/16 at 03:30 Assessment/Plan Patient being observed in triage to see if there is any cervical change. HAILEE CASTANO MD Oct 25, 2016 05:15
== END 2016-10-25 05:30 | disposition home or self-care (01) ==
LOC: OBT 01:38 → L-D 01:38 → OBT 02:40
PROVIDERS: ATTEND Obstetrics & Gynecology
DX: O62.9 Abnormality of forces of labor, unspecified (principal); O99.283 Endocrine, nutritional and metabolic diseases complicating pregnancy, third trimester; E03.9 Hypothyroidism, unspecified; Z79.890 Hormone replacement therapy; Z3A.36 36 weeks gestation of pregnancy
CPT/HCPCS: 36415; 96360; 96372; J3105; J7120; Z7500; G0463

== ENCOUNTER 2016-11-14 09:30 | Inpatient (IN) | payer OTHER ==
[~2016-11-14] VITALS: Ht 160 cm; Wt 104.5 kg
[2016-11-14] MEDS ORDERED: LACTATED RINGER'S 1,000 ML IV SCH (09:40)
[2016-11-14 10:00] VITALS: Ht 160 cm; Wt 104.5 kg
[2016-11-14] MEDS ORDERED: BUTORPHANOL 2 MG INJ IV PRN (10:00)
[2016-11-14] MEDS ORDERED: CARBOPROST 250 MCG INJ IM PRN (10:00)
[2016-11-14] MEDS ORDERED: LIDOCAINE 1% (MPF) 30 ML INJ INJ PRN (10:00)
[2016-11-14] MEDS ORDERED: OXYTOCIN 30 UNITS/LR 500 ML IV PRN (10:00)
[2016-11-14] MEDS ORDERED: METHYLERGONOVINE 0.2 MG INJ IM PRN (10:00)
[2016-11-14] MEDS ORDERED: OXYTOCIN 30 UNITS/LR 500 ML IV SCH ×3 (10:00)
[2016-11-14] MEDS ORDERED: IBUPROFEN 600 MG TAB PO PRN (10:00)
[2016-11-14] MEDS ORDERED: MISOPROSTOL 200 MCG TAB PR PRN (10:00)
[2016-11-14 10:48] LABS: ADD SCAN DIFF NO
[2016-11-14 10:50] LABS: BASOPHILS % 0.4 % (0.0-2.0); EOSINOPHILS % 0.5 % (0.0-7.0); HEMATOCRIT 34.7 % (37.0-47.0); HEMOGLOBIN 11.6 g/dl (12.0-16.0); LYMPHOCYTES % 23.6 % (15.0-51.0); MEAN CORPUSCULAR HEMOGLOBIN 28.6 pg (29.0-33.0); MEAN CORPUSCULAR HGB CONC 33.4 g/dl (32.0-37.0); MEAN CORPUSCULAR VOLUME 85.5 fl (82.0-101.0); MEAN PLATELET VOLUME 11.9 fl (7.4-10.4); MONOCYTE # 0.7 10^3/ul (0.3-0.9); MONOCYTES % 8.8 % (0.0-11.0); NEUTROPHIL # 5.5 10^3/ul (1.6-7.5); NEUTROPHILS % 66.2 % (39.0-77.0); PLATELET COUNT 169 10^3/UL (140-415); RED BLOOD COUNT 4.06 10^6/ul (4.20-5.40); RED CELL DISTRIBUTION WIDTH 14.2 % (11.5-14.5); WHITE BLOOD COUNT 8.3 10^3/ul (4.8-10.8)
[2016-11-14 11:00] VITALS: BP 111/68; PULSE 88; RESP 18
[2016-11-14 11:06] LABS: INR 0.86; PROTIME 11.7 Sec (12.2-14.2); PT RATIO 0.9
[2016-11-14 11:07] LABS: PARTIAL THROMBOPLASTIN TIME 28.1 Sec (25.0-35.0)
[2016-11-14] MEDS ORDERED: DINOPROSTONE 10 MG VAG SUPP VAG ONE (11:30)
[2016-11-14] MEDS ORDERED: LACTATED RINGER'S 1,000 ML IV PRN (12:00)
[2016-11-14] MEDS ORDERED: DEXTROSE 5%-LR 1,000 ML IV SCH (16:25)
[2016-11-14] MEDS: LACTATED RINGER'S 1,000 ML IV SCH (17:37)
[2016-11-14] MEDS ORDERED: FENTAnyl 2MCG/ML-ROPIV 0.2% 100 ML ONE (22:56)
[2016-11-15] MEDS ORDERED: OXYTOCIN 30 UNITS/LR 500 ML IV SCH (02:00)
[2016-11-15] MEDS: LACTATED RINGER'S 1,000 ML IV SCH (03:11)
--- NOTE | 2016-11-15 03:51 | HP ---
Date/Time of Note Date/Time of Note DATE: 11/15/16 TIME: 03:48 OB - History Hx of Present Chief Complaint: history of severe preeclampsia Last Menstrual Period: Jan 28, 2017 Estimated Due Date: Nov 21, 2016 : 2 Para: 1 Care: Good Care Obstetrical Complications: None Medical Complications: None Past Family/Social History * Past Medical, Surgical, Family and Obstetric Histories reviewed from chart. Rubella: immune RPR/VDRL: Negative GBS Status: Negative HBsAG: Negative OB Admission Exam Vital Signs Vital Signs Vital Signs Date Time Temp Pulse Resp B/P Pulse Ox O2 Delivery O2 Flow Rate FiO2 11/14/16 11:00 98.3 88 18 111/68 Room Air Physical Exam HEENT: WNL Heart: Rhythm Normal Lungs: Clear, Equal Abdomen: WNL Extremities: Normal Reflexes: Normal Cervical Dilatation: 3cm Effacement: 75% Station: -3 Membranes: Intact Heart Rate: 120's Varibility: Moderate Contractions on Admission: 6-10 Minutes Apart Intensity: Mild Last 72 hours Lab Results CBC & BMP 11/14/16 10:20 OB Assessment/Plan Reason for admission: induction of labor Induction Method: per Misoprostol Protocol MELANIE CARRILLO MD Nov 15, 2016 03:51
--- NOTE | 2016-11-15 03:54 | LDN ---
Date/Time of Note Date/Time of Note DATE: 11/15/16 TIME: 03:51 Delivery Summary Weeks of Gestation 39 weeks Assisted Vaginal Delivery: Vacuum Placenta Delivered: Spontaneously Episiotomy: No Perineal laceration: 1 Anesthesia type: Epidural Sponge & Needle done & correct: Yes All needle counts correct: Yes Any foreign bodies felt in the: No Problems: Infant Delivery Information Sex Infant Sex: female Apgars 1 Minute: 9 5 Minute: 9 Suctioning Nose & mouth suctioned at simona: Yes Delee suction performed: No Umbilical Cord Umbilical cord with: 3 Vessels Cord presentations: nuchal cord Cord Blood was obtained: Yes Mother & Baby Disposition Disposition Mom & Baby to Maternity; Good: Yes MELANIE CARRILLO MD Nov 15, 2016 03:54
[2016-11-15] MEDS ORDERED: CARBOPROST 250 MCG INJ IM PRN (04:00)
[2016-11-15] MEDS ORDERED: ONDANSETRON 4 MG INJ IV PRN (04:00)
[2016-11-15] MEDS ORDERED: MISOPROSTOL 200 MCG TAB PR PRN (04:00)
[2016-11-15] MEDS ORDERED: ACETAMINOPHEN 325 MG TAB PO PRN ×2 (04:00)
[2016-11-15] MEDS ORDERED: DIPHENHYDRAMINE 25 MG CAP PO PRN (04:00)
[2016-11-15] MEDS ORDERED: OXYTOCIN 30 UNITS/LR 500 ML IV PRN (04:00)
[2016-11-15] MEDS ORDERED: BENZOCAINE 20% 56 ML SPRAY TOP PRN (04:00)
[2016-11-15] MEDS ORDERED: METHYLERGONOVINE 0.2 MG INJ IM PRN (04:00)
[2016-11-15] MEDS ORDERED: DIBUCAINE 1% 30 GM OINT PR PRN (04:00)
[2016-11-15] MEDS ORDERED: ACETAMINOPHEN/CODEINE #3 TAB PO PRN ×2 (04:00)
[2016-11-15] MEDS ORDERED: LANOLIN 7 GM TUBE TOP PRN (04:00)
[2016-11-15 06:15] VITALS: BP 123/65; PULSE 67; RESP 19
[2016-11-15] MEDS: IBUPROFEN 800 MG TAB PO SCH ×3 (06:15→18:05)
[2016-11-15] MEDS: OXYTOCIN 30 UNITS/LR 500 ML IV SCH ×2 (07:20→12:20)
[2016-11-15] MEDS: LEVOTHYROXINE 150 MCG TAB PO SCH (07:46)
[2016-11-15 07:57] VITALS: BP 110/74; PULSE 77; RESP 14
[2016-11-15] MEDS: SENNA/DOCUSATE NA (8.6MG/50MG) TAB PO SCH ×2 (09:19→21:36)
[2016-11-15 14:00] VITALS: BP 129/78; PULSE 72; RESP 16
[2016-11-15 16:09] VITALS: BP 120/72; PULSE 67; RESP 14
[2016-11-15 20:00] VITALS: BP 114/71; PULSE 75; RESP 20
[2016-11-16] MEDS: IBUPROFEN 800 MG TAB PO SCH ×4 (00:08→18:14)
[2016-11-16 04:00] VITALS: BP 121/68; PULSE 70; RESP 20
[2016-11-16] MEDS: LEVOTHYROXINE 150 MCG TAB PO SCH (07:08)
[2016-11-16 07:45] VITALS: BP 99/66; PULSE 59; RESP 18
[2016-11-16 07:59] LABS: ADD SCAN DIFF NO
[2016-11-16 08:00] VITALS: BP 105/55; PULSE 61; RESP 19
[2016-11-16 08:02] LABS: BASOPHILS % 0.4 % (0.0-2.0); EOSINOPHILS # 0.1 10^3/ul (0.0-0.5); EOSINOPHILS % 1.1 % (0.0-7.0); HEMATOCRIT 31.4 % (37.0-47.0); HEMOGLOBIN 10.6 g/dl (12.0-16.0); LYMPHOCYTES # 2.2 10^3/ul (0.8-2.9); LYMPHOCYTES % 28.5 % (15.0-51.0); MEAN CORPUSCULAR HGB CONC 33.8 g/dl (32.0-37.0); MEAN PLATELET VOLUME 11.8 fl (7.4-10.4); MONOCYTE # 0.6 10^3/ul (0.3-0.9); MONOCYTES % 7.6 % (0.0-11.0); NEUTROPHIL # 4.9 10^3/ul (1.6-7.5); NEUTROPHILS % 61.9 % (39.0-77.0); PLATELET COUNT 150 10^3/UL (140-415); RED BLOOD COUNT 3.65 10^6/ul (4.20-5.40); RED CELL DISTRIBUTION WIDTH 14.3 % (11.5-14.5); WHITE BLOOD COUNT 7.9 10^3/ul (4.8-10.8)
[2016-11-16] MEDS: SENNA/DOCUSATE NA (8.6MG/50MG) TAB PO SCH ×2 (09:23→21:00)
[2016-11-16] MEDS ORDERED: WITCH HAZEL/GLYCERIN PAD PR PRN (12:30)
--- NOTE | 2016-11-16 12:39 | QN ---
Documentation Comment PPD#1 is stable afebrile tolerates diet No VB +BM +voids VS stable Gen NAD Abd soft NT ND Genitalia No blood at perinium --->ambulation JARROD ROSALES M.D. Nov 16, 2016 12:39
[2016-11-16 15:50] VITALS: BP 102/58; PULSE 64; RESP 18
[2016-11-16 19:50] VITALS: BP 112/65; PULSE 73; RESP 19
[2016-11-17] MEDS: IBUPROFEN 800 MG TAB PO SCH ×3 (00:02→11:57)
[2016-11-17 04:00] VITALS: BP 111/72; PULSE 71
[2016-11-17] MEDS: LEVOTHYROXINE 150 MCG TAB PO SCH (07:19)
[2016-11-17 08:00] VITALS: BP 114/61; PULSE 74; RESP 18
[2016-11-17] MEDS: SENNA/DOCUSATE NA (8.6MG/50MG) TAB PO SCH (08:42)
[2016-11-17] MEDS ORDERED: MEASLES,MUMPS,RUBELLA VACCINE INJ SC* ONE (09:00)
[2016-11-17] MEDS ORDERED: DIPHTH/TET/ACEL PERTUSS (ADULT) 0.5 ML VIAL IM* ONE (09:00)
[2016-11-17] MEDS ORDERED: VARICELLA VACCINE LIVE/PF 1,350 UNIT/0.5 ML ML SC* ONE (09:00)
== END 2016-11-17 16:45 | disposition home or self-care (01) | DRG 775 ==
LOC: L-D 09:30 → PP1 11-15 06:00
PROVIDERS: ADMIT Obstetrics & Gynecology; ATTEND Obstetrics & Gynecology
PROC: 10E0XZZ Delivery of Products of Conception, External Approach (ICD-10-PCS; principal; 2016-11-15)
PROC: 0HQ9XZZ Repair Perineum Skin, External Approach (ICD-10-PCS; 2016-11-15)
DX: O69.81X0 Labor and delivery complicated by cord around neck, without compression, not applicable or unspecified (principal); Z68.41 Body mass index [BMI] 40.0-44.9, adult; O70.0 First degree perineal laceration during delivery; O99.214 Obesity complicating childbirth; E66.01 Morbid (severe) obesity due to excess calories; O99.284 Endocrine, nutritional and metabolic diseases complicating childbirth; E03.9 Hypothyroidism, unspecified; Z3A.39 39 weeks gestation of pregnancy; Z37.0 Single live birth
CPT/HCPCS: 62319; 85025; 85610; 85730; 86592; 86900; 86901; 87340; 90715; 90716; 99464; J2590; J3010; J7120; J7121

== ENCOUNTER 2017-05-07 01:20 | Emergency (ER) | payer OTHER ==
[~2017-05-07] VITALS: Ht 162.6 cm; Wt 101.4 kg
[2017-05-07 01:28] VITALS: Ht 162.6 cm; Wt 101.4 kg
[2017-05-07] MEDS ORDERED: LIDOCAINE 1% (MDV) 20 ML INJ SC ONE (03:30)
[2017-05-07] MEDS ORDERED: IBUP800T25 PO (03:52)
[2017-05-07] MEDS ORDERED: CEPH-443 PO (03:52)
[2017-05-07] MEDS ORDERED: SULF1TAB31 PO (03:52)
[2017-05-07] MEDS ORDERED: MUPI22OI2 NASAL (03:52)
--- NOTE | 2017-05-07 03:57 | ERD ---
ER Documentation Chief Complaint Chief Complaint swelling right axilla x 4 days HPI 32-year-old female complaining of swelling her right axilla 4 days. Patient stated that this started as a pimple, and she tried to squeeze it. It has been increasing in size, and increasing pain. She took Tylenol at home which helped some. Denies fever or chills. Denies drainage. Patient stated that her father had frequent abscesses that required drainage. She lives with him. She also had history of other abscesses. ROS All systems reviewed and are negative except as per history of present illness. Medications Home Meds Active Scripts Mupirocin* (Bactroban*) 2% -22 Gram Oint...g., 1 APPLIC NASAL BID for 14 Days, EA Prov:DAMIEN DAMICO NP 05/07/17 Sulfamethoxazole/Trimethoprim* (Bactrim Ds* Tablet) 1 Each Tablet, 1 TAB PO BID , #14 TAB Prov:DAMIEN DAMICO NP 05/07/17 Cephalexin* (Keflex*) 500 Mg Capsule, 500 MG PO QID for 7 Days, CAP Prov:DAMIEN DAMICO NP 05/07/17 Ibuprofen* (Motrin*) 800 Mg Tab, 800 MG PO Q6H Y for PAIN AND OR ELEVATED TEMP, #30 TAB Prov:DAMIEN DAMICO NP 05/07/17 Reported Medications Ferrous Sulfate (Iron) 134 Mg Tablet, 134 MG PO DAILY, TAB 09/29/16 Multivit/Min/Fol Ac/Iron/Pren* ( S*) 1 Tab Tab, 1 TAB PO DAILY, TAB 09/29/16 Levothyroxine Sodium* (Levothyroxine Sodium*) 150 Mcg Tablet, 150 MCG PO BEFORE BREAKFAST, #30 TAB 09/29/16 Allergies Allergies: Coded Allergies: No Known Drug Allergies (Verified Allergy, Mild, none, 05/07/17) PMhx/Soc Medical and Surgical Hx: pt denies Surgical Hx History of Surgery: No Anesthesia Reaction: No Hx Neurological Disorder: No Hx Respiratory Disorders: No Hx Cardiac Disorders: No Hx Psychiatric Problems: No Hx Miscellaneous Medical Probl: Yes (hyporthyroidism, hypertension) Hx Alcohol Use: No Hx Substance Use: No Hx Tobacco Use: No Smoking Status: Never smoker Physical Exam Vitals Vital Signs Date Time Temp Pulse Resp B/P Pulse Ox O2 Delivery O2 Flow Rate FiO2 05/07/17 01:28 99.7 89 20 148/73 100 Physical Exam General: Well-developed, well-nourished, conscious and coherent, in no distress Skin: Warm and dry without rash, good texture and turgor. A 2 x 3 cm fluctuant area noted in the left axilla, there is also small area of erythema extending beyond the abscess. Head: Normocephalic without evidence of trauma Eyes: Sclera and conjunctivae normal; pupils equal, round, and reactive to light; extraocular movements are intact Chest: Normal AP diameter. Good expansion without retractions. Nontender. Lungs are clear to auscultate bilaterally with good tidal volume Heart: Regular rate and rhythm. No murmur, rub, or gallops heard Extremities: Full range of motion. Good strength bilaterally. No clubbing, cyanosis, or edema. Peripheral pulses are intact. Sensation intact Neuro: Alert and oriented 4, GCS 15. Cranial nerves grossly intact. Motor and sensory exams nonfocal. Moves all extremities. Speech clear. Gait normal Results 24 hrs Current Medications Medications (Trade) Dose Ordered Sig/George Route PRN Reason Start Time Stop Time Status Last Admin Dose Admin Lidocaine (Xylocaine 1% (Mdv) 20 ml) 20 ml ONCE ONCE SC 05/07/17 03:30 05/07/17 03:31 DC Procedures/MDM Procedure note: Incision and Drainage Verbal consent obtained for incision and drainage of patient's abscess. The area was prepped with Betadine. Lidocaine 1% was infiltrated for local anesthesia. After appropriate anesthesia, incision was made using #11 blade. Copious amount of purulent discharge was drained from the abscess. The abscess was probed for loculation. It was then irrigated with 60 ml of NS solution. Iodoform 1/4" packing tape was inserted into the abscess. The wound was then cleaned and dressed. Patient tolerated procedure well. There is sign of cellulitis beyond the abscess, antibiotics will be prescribed for the patient. Patient will also given Bactroban ointment for eradication therapy. No sign of necrotizing fasciitis. Patient appears well, stable for discharge and outpatient management. Medical decision making shared with patient and family. Education provided to patient and family. Patient and family expressed understanding of the plan. Medications on discharge: Ibuprofen, Keflex, Bactrim DS, Bactroban Follow-up: Primary care provider in 2-3 days or return to ED if worse. Disclaimer: Inadvertent spelling and grammatical errors are likely due to EHR/ dictation software use and do not reflect on the overall quality of patient care. Also, please note that the electronic time recorded on this note does not necessarily reflect the actual time of the patient encounter. Departure Diagnosis: Primary Impression: Abscess Condition: Stable Patient Instructions: Abscess, Incision And Drainage Additional Instructions: Return to this facility in 2 DAYS for a follow-up exam.Return sooner if your condition worsens. DAMIEN DAMICO. SSRS DEVELOPER May 07, 2017 03:57
== END 2017-05-07 03:57 | disposition home or self-care (01) ==
LOC: FTE 01:20
DX: L02.411 Cutaneous abscess of right axilla (principal); E03.9 Hypothyroidism, unspecified; I10 Essential (primary) hypertension
CPT/HCPCS: 10061; Z7502; Z7610